=== PATIENT | female | born 1970 | race Caucasian/White ===

== ENCOUNTER 2018-02-13 20:15 | Emergency (ER) | payer OTHER ==
[~2018-02-13] VITALS: Ht 165.1 cm; Wt 104.5 kg
[~2018-02-13 20:15] MED LIST: ARIP15TA2 PO; BENZ1TAB10 PO; DESM0.2T23 PO; DIPH50CA4 PO; MOTRIN; OLAN5TAB2 PO; OXYC-112 PO; RISP3TAB13 PO; SERT100T12 PO
[2018-02-13 22:55] VITALS: BP 141/83
[2018-02-14 02:50] LABS: GLUCOSE,POINT OF CARE 252 MG/DL (70-110)
== END 2018-02-13 23:03 | disposition home or self-care (01) ==
LOC: EMS 20:16
DX: S93.401A Sprain of unspecified ligament of right ankle, initial encounter (principal); F32.9 Major depressive disorder, single episode, unspecified; K21.9 Gastro-esophageal reflux disease without esophagitis; E78.00 Pure hypercholesterolemia, unspecified; F17.210 Nicotine dependence, cigarettes, uncomplicated; Z79.899 Other long term (current) drug therapy; X50.1XXA Overexertion from prolonged static or awkward postures, initial encounter; Y93.89 Activity, other specified; Y92.89 Other specified places as the place of occurrence of the external cause; Y99.8 Other external cause status
CPT/HCPCS: 29540; 99284

== ENCOUNTER 2018-02-25 18:54 | Emergency (ER) | payer OTHER ==
[~2018-02-25] VITALS: Ht 165.1 cm; Wt 106.8 kg
[2018-02-25 19:15] LABS: GLUCOSE,POINT OF CARE 209 MG/DL (70-110)
[2018-02-25] MEDS ORDERED: METOCLOPRAMIDE HCL 10 MG TABLET PO ONE (19:30)
[2018-02-25] MEDS ORDERED: IBUPROFEN 400 MG TABLET PO ONE (21:45)
[2018-02-25 21:59] VITALS: BP 138/79
== END 2018-02-25 22:06 | disposition home or self-care (01) ==
LOC: EMS 18:56
DX: R51 Headache (principal); F32.9 Major depressive disorder, single episode, unspecified; K21.9 Gastro-esophageal reflux disease without esophagitis; E78.00 Pure hypercholesterolemia, unspecified; F17.210 Nicotine dependence, cigarettes, uncomplicated; R11.2 Nausea with vomiting, unspecified; Z79.899 Other long term (current) drug therapy
CPT/HCPCS: 70450; 99284

== ENCOUNTER 2018-07-23 17:01 | Emergency (ER) | payer OTHER ==
[~2018-07-23] VITALS: Ht 175.3 cm; Wt 100.0 kg
[2018-07-23] MEDS ORDERED: METF-960 PO (17:10)
[2018-07-23] MEDS ORDERED: ATOR20TA86 PO (17:10)
[2018-07-23 17:18] LABS: GLUCOSE,POINT OF CARE 142 MG/DL (70-110)
[2018-07-23 17:29] LABS: BASOPHILS % (AUTO) 0.8 % (0.0-2.0); EOSINOPHILS % (AUTO) 1.9 % (1.0-6.0); HEMATOCRIT 36.4 % (36-46); LYMPHOCYTES % (AUTO) 24.9 % (22.0-44.0); MEAN CORPUSCULAR HEMOGLOBIN 24.5 pg (26.0-34.0); MEAN CORPUSCULAR VOLUME 74 fL (80-100); MONOCYTES # (AUTO) 0.6 K/uL (0.1-1.0); MONOCYTES % (AUTO) 7.5 % (2.0-9.0); NEUTROPHILS # (AUTO) 5.2 K/uL (1.8-7.7); NEUTROPHILS % (AUTO) 64.9 % (40.0-70.0); PLATELET COUNT (AUTO) 263 K/uL (150-450); RED CELL DISTRIBUTION WIDTH 15.6 % (11.5-14.5)
[2018-07-23 17:51] LABS: ANION GAP 9 mmol/L (8-16); CALCIUM, TOTAL 9.9 mg/dL (8.8-10.5); CARBON DIOXIDE 28 mmol/L (22-29); CHLORIDE 102 mmol/L (98-107); CREATININE 0.77 mg/dL (0.60-1.30); GLOMERULAR FILTR. RATE CALC > 60 mL/min (>60); GLUCOSE,RANDOM 138 mg/dL (70-110); POTASSIUM 3.8 mmol/L (3.5-5.1); SODIUM SERUM 139 mmol/L (136-145); UREA NITROGEN, BLOOD 12 mg/dL (7-18)
[2018-07-23 17:58] LABS: ALANINE AMINOTRANSFERASE 85 U/L (12-78); ALBUMIN 3.7 g/dL (3.4-5.0); ALKALINE PHOSPHATASE 89 U/L (46-116); ASPARTATE AMINOTRANSFERASE 73 U/L (15-37); BILIRUBIN,TOTAL 0.3 mg/dL (0.1-1.0); TOTAL PROTEIN, SERUM 8.4 g/dL (6.4-8.2)
[2018-07-23 19:18] LABS: APPEARANCE,URINE CLOUDY (CLEAR); BILIRUBIN,URINE NEGATIVE (NEGATIVE); GLUCOSE, URINE (UA) NEGATIVE (NEGATIVE); KETONES,URINE NEGATIVE (NEGATIVE); LEUKOCYTE ESTERASE ,URINE MODERATE (NEGATIVE); NITRATE,URINE POSITIVE (NEGATIVE); OCCULT BLOOD,URINE NEGATIVE (NEGATIVE); PH,URINE 5.5 (5.0-8.0); PROTEIN,URINE NEGATIVE (NEGATIVE); UROBILINOGEN,URINE 0.2 mg/dL (<=1.0)
[2018-07-23 20:03] LABS: BACTERIA,URINE Moderate /HPF (None Seen); RBC,URINE None Seen /HPF (0-2)
[2018-07-23 20:04] LABS: MUCUS,URINE Few LPF (None Seen); SQUAMOUS EPITHELIAL CELL,UR Moderate /LPF (None Seen)
[2018-07-23 22:17] VITALS: BP 128/78
== END 2018-07-23 22:34 | disposition home or self-care (01) ==
LOC: EMS 17:02
DX: N39.0 Urinary tract infection, site not specified (principal); R07.2 Precordial pain; E78.00 Pure hypercholesterolemia, unspecified; K21.9 Gastro-esophageal reflux disease without esophagitis; F32.9 Major depressive disorder, single episode, unspecified; F17.210 Nicotine dependence, cigarettes, uncomplicated; Z79.84 Long term (current) use of oral hypoglycemic drugs; Z79.899 Other long term (current) drug therapy
CPT/HCPCS: 87086; 93005

== ENCOUNTER 2020-01-23 14:15 | Emergency (ER) | payer OTHER ==
[~2020-01-23] VITALS: Ht 165.1 cm; Wt 89.1 kg
[~2020-01-23 14:15] MED LIST changes: +ATOR20TA86 PO; +METF-960 PO
[2020-01-23] MEDS ORDERED: ACETAMINOPHEN 500 MG TABLET PO ONE (15:30)
[2020-01-23 17:22] VITALS: BP 118/71
== END 2020-01-23 18:48 | disposition home or self-care (01) ==
LOC: EMS 14:16
DX: S90.31XA Contusion of right foot, initial encounter (principal); E11.9 Type 2 diabetes mellitus without complications; W19.XXXA Unspecified fall, initial encounter; Y93.89 Activity, other specified; Y92.89 Other specified places as the place of occurrence of the external cause; Y99.8 Other external cause status

== ENCOUNTER 2020-08-20 11:31 | Emergency (ER) | payer OTHER ==
[~2020-08-20] VITALS: Ht 167.6 cm; Wt 79.5 kg
[~2020-08-20 11:31] MED LIST changes: -RISP3TAB13 PO; +RISP3TAB63 PO; +SERT-440 PO; -SERT100T12 PO
[2020-08-20] MEDS ORDERED: DAPA5TAB PO (11:41)
[2020-08-20] MEDS ORDERED: NITROGLYCERIN 2% (1 GM=INCH) PACKET TP ONE (11:45)
[2020-08-20] MEDS ORDERED: ASPIRIN 81 MG CHEWABLE TABLET PO ONE (11:45)
[2020-08-20 12:19] LABS: BASOPHILS % (AUTO) 0.5 % (0.0-2.0); EOSINOPHILS % (AUTO) 1.5 % (1.0-6.0); HEMATOCRIT 36.9 % (36-46); HEMOGLOBIN 12.2 g/dL (12.0-16.0); LYMPHOCYTES # (AUTO) 1.4 K/uL (1.0-4.8); LYMPHOCYTES % (AUTO) 20.8 % (22.0-44.0); MEAN CORPUSCULAR HEMOGLOBIN 25.5 pg (26.0-34.0); MEAN CORPUSCULAR HGB CONC 33.1 G/dL (31.0-37.0); MEAN CORPUSCULAR VOLUME 77 fL (80-100); MONOCYTES # (AUTO) 0.4 K/uL (0.1-1.0); MONOCYTES % (AUTO) 6.2 % (2.0-9.0); NEUTROPHILS # (AUTO) 4.9 K/uL (1.8-7.7); PLATELET COUNT (AUTO) 177 K/uL (150-450)
[2020-08-20 12:25] LABS: ANION GAP 9 mmol/L (8-16); CALCIUM, TOTAL 9.6 mg/dL (8.8-10.5); CARBON DIOXIDE 30 mmol/L (22-29); CHLORIDE 104 mmol/L (98-107); CREATININE 0.65 mg/dL (0.60-1.30); GLOMERULAR FILTR. RATE CALC > 60 mL/min (>60); GLUCOSE,RANDOM 132 mg/dL (70-110); POTASSIUM 3.8 mmol/L (3.5-5.1); SODIUM SERUM 143 mmol/L (136-145); UREA NITROGEN, BLOOD 14 mg/dL (7-18)
[2020-08-20 12:45] VITALS: BP 126/95
[2020-08-20] MEDS ORDERED: OMEG-102 PO (12:49)
== END 2020-08-20 12:50 | disposition home or self-care (01) ==
LOC: EMS 11:33
DX: R07.89 Other chest pain (principal); F32.9 Major depressive disorder, single episode, unspecified; E11.9 Type 2 diabetes mellitus without complications; K21.9 Gastro-esophageal reflux disease without esophagitis; E78.00 Pure hypercholesterolemia, unspecified; F17.210 Nicotine dependence, cigarettes, uncomplicated; Z88.5 Allergy status to narcotic agent; Z79.84 Long term (current) use of oral hypoglycemic drugs
CPT/HCPCS: 93005; 99285; 36415-L1; 36415-TC; 71045-TC

== ENCOUNTER 2021-07-18 20:54 | Emergency (ER) | payer OTHER ==
[~2021-07-18] VITALS: Ht 165.1 cm; Wt 100.0 kg
[~2021-07-18 20:54] MED LIST changes: -ARIP15TA2 PO; +ARIP15TA27 PO; +DAPA5TAB PO; -DESM0.2T23 PO; +DIPH50CA38 PO; -DIPH50CA4 PO; +METF-1211 PO; -METF-960 PO; -MOTRIN; -OLAN5TAB2 PO; +OLAN5TAB52 PO; +OMEG-102 PO
[2021-07-19] MEDS ORDERED: ACETAMINOPHEN 500 MG TABLET PO ONE
[2021-07-19 01:25] VITALS: BP 145/77
== END 2021-07-19 02:01 | disposition home or self-care (01) ==
LOC: EMS 21:22
DX: S00.03XA Contusion of scalp, initial encounter (principal); S09.90XA Unspecified injury of head, initial encounter; E04.1 Nontoxic single thyroid nodule; E11.9 Type 2 diabetes mellitus without complications; E78.00 Pure hypercholesterolemia, unspecified; K21.9 Gastro-esophageal reflux disease without esophagitis; F32.9 Major depressive disorder, single episode, unspecified; F17.210 Nicotine dependence, cigarettes, uncomplicated; Z88.8 Allergy status to other drugs, medicaments and biological substances; Z79.899 Other long term (current) drug therapy; W06.XXXA Fall from bed, initial encounter; Y93.89 Activity, other specified; Y92.89 Other specified places as the place of occurrence of the external cause; Y99.8 Other external cause status
CPT/HCPCS: 70450; 72125; 82962; 99284

== ENCOUNTER 2022-02-12 07:25 | Emergency (ER) | payer OTHER ==
[~2022-02-12] VITALS: Ht 165.1 cm; Wt 96.4 kg
[~2022-02-12 07:25] MED LIST changes: -BENZ1TAB10 PO; +BENZ1TAB96 PO
[2022-02-12] MEDS ORDERED: LOSA-381 PO (07:50)
[2022-02-12] MEDS ORDERED: FAMO20 PO (07:50)
[2022-02-12] MEDS ORDERED: ATOR20TA86 PO (07:50)
[2022-02-12] MEDS ORDERED: MELA3TAB89 PO ×2 (07:50→12:52)
[2022-02-12] MEDS ORDERED: SODIUM CHLORIDE 0.9% 1,000 ML IV ONE (08:15)
[2022-02-12 08:26] LABS: GLUCOMETER DEV NAME(LOC) ERT.5; GLUCOSE,POINT OF CARE 137 MG/DL (70-110)
[2022-02-12 08:29] LABS: BASOPHILS % (AUTO) 0.5 % (0.0-2.0); HEMATOCRIT 35.9 % (36-46); HEMOGLOBIN 11.7 g/dL (12.0-16.0); LYMPHOCYTES # (AUTO) 1.6 K/uL (1.0-4.8); LYMPHOCYTES % (AUTO) 23.4 % (22.0-44.0); MEAN CORPUSCULAR HEMOGLOBIN 25.7 pg (26.0-34.0); MEAN CORPUSCULAR HGB CONC 32.8 G/dL (31.0-37.0); MEAN CORPUSCULAR VOLUME 79 fL (80-100); MONOCYTES # (AUTO) 0.5 K/uL (0.1-1.0); MONOCYTES % (AUTO) 7.8 % (2.0-9.0); NEUTROPHILS # (AUTO) 4.6 K/uL (1.8-7.7); NEUTROPHILS % (AUTO) 66.3 % (40.0-70.0); PLATELET COUNT (AUTO) 160 K/uL (150-450); RED BLOOD CELL COUNT(AUTO) 4.57 MIL/uL (4.00-5.20); RED CELL DISTRIBUTION WIDTH 15.1 % (11.5-14.5)
[2022-02-12 08:38] LABS: ANION GAP 2 mmol/L (8-16); CALCIUM, TOTAL 8.7 mg/dL (8.8-10.5); CARBON DIOXIDE 31 mmol/L (22-29); CHLORIDE 105 mmol/L (98-107); CREATININE 0.65 mg/dL (0.60-1.30); GLUCOSE,RANDOM 141 mg/dL (70-110); POTASSIUM 3.6 mmol/L (3.5-5.1); SODIUM SERUM 138 mmol/L (136-145); UREA NITROGEN, BLOOD 11 mg/dL (7-18)
[2022-02-12 08:39] LABS: GLOMERULAR FILTR. RATE CALC > 60 mL/min (>60)
[2022-02-12 08:45] LABS: ALANINE AMINOTRANSFERASE 21 U/L (12-78); ALBUMIN 3.1 g/dL (3.4-5.0); ALKALINE PHOSPHATASE 79 U/L (46-116); ASPARTATE AMINOTRANSFERASE 16 U/L (15-37); BILIRUBIN,TOTAL 0.3 mg/dL (0.1-1.0); TOTAL PROTEIN, SERUM 6.7 g/dL (6.4-8.2)
[2022-02-12 11:58] VITALS: BP 122/80
[2022-02-12] MEDS ORDERED: METO25 PO (12:51)
[2022-02-12] MEDS ORDERED: OLAN10 PO (12:51)
[2022-02-12] MEDS ORDERED: METF-81 PO (12:51)
[2022-02-12] MEDS ORDERED: OXYB5TAB20 PO (12:51)
[2022-02-12] MEDS ORDERED: MECLIZINE HCL 25 MG TABLET PO ONE (13:00)
== END 2022-02-12 13:31 | disposition home or self-care (01) ==
LOC: EMS 07:25
DX: R42 Dizziness and giddiness (principal); F32.A Depression, unspecified; E11.9 Type 2 diabetes mellitus without complications; E78.00 Pure hypercholesterolemia, unspecified; F17.210 Nicotine dependence, cigarettes, uncomplicated; Z98.890 Other specified postprocedural states; Z88.8 Allergy status to other drugs, medicaments and biological substances; F79 Unspecified intellectual disabilities
CPT/HCPCS: 99284; 96360; 70450; 80053; 82962; 85025; 36415; J7030

== ENCOUNTER 2022-12-16 19:34 | Emergency (ER) | payer OTHER ==
[~2022-12-16] VITALS: Ht 165.1 cm; Wt 85.0 kg
[~2022-12-16 19:34] MED LIST changes: +ATOR20TA PO; -ATOR20TA86 PO; +BENZ1TAB84 PO; -BENZ1TAB96 PO; -DIPH50CA38 PO; +FAMO20 PO; +LOSA-381 PO; +MELA3TAB89 PO; -METF-1211 PO; +METF-81 PO; +METO25 PO; +OLAN10 PO; +OXYB5TAB20 PO; -OXYC-112 PO
[2022-12-16] MEDS ORDERED: LIDOCAINE 1% 10 ML VIAL SQ ONE (20:15)
[2022-12-16] MEDS ORDERED: PERTUSS(ACELL),DIPH,TET VAC/PF 0.5 ML SYRINGE IM. ONE (20:15)
[2022-12-16] MEDS ORDERED: BACITRACIN 0.9 GM PACKET OINTMENT TP ONE (20:15)
[2022-12-16] MEDS ORDERED: ACETAMINOPHEN 500 MG TABLET PO ONE (20:15)
[2022-12-16 20:33] VITALS: BP 110/60; PULSE 92; RESP 17; TEMP 98
== END 2022-12-16 21:18 | disposition home or self-care (01) ==
LOC: EMS 19:34
DX: S51.812A Laceration without foreign body of left forearm, initial encounter (principal); S00.03XA Contusion of scalp, initial encounter; E11.9 Type 2 diabetes mellitus without complications; E78.00 Pure hypercholesterolemia, unspecified; F32.A Depression, unspecified; K21.9 Gastro-esophageal reflux disease without esophagitis; F17.210 Nicotine dependence, cigarettes, uncomplicated; F79 Unspecified intellectual disabilities; Z88.8 Allergy status to other drugs, medicaments and biological substances; W01.0XXA Fall on same level from slipping, tripping and stumbling without subsequent striking against object, initial encounter; Y93.89 Activity, other specified; Y92.89 Other specified places as the place of occurrence of the external cause; Y99.8 Other external cause status
CPT/HCPCS: 99283; 73090; 90715; 90471; 12001; J3490

== ENCOUNTER 2023-06-08 11:03 | Emergency (ER) | payer OTHER ==
[~2023-06-08] VITALS: Ht 167.6 cm; Wt 95.5 kg
[2023-06-08 11:14] VITALS: TEMP 97.7
[2023-06-08] MEDS ORDERED: IBUP-1492 PO (12:53)
[2023-06-08 13:03] VITALS: BP 116/71; PULSE 84; RESP 16
== END 2023-06-08 13:04 | disposition home or self-care (01) ==
LOC: EMS 11:19
DX: S52.591A Other fractures of lower end of right radius, initial encounter for closed fracture (principal); F32.A Depression, unspecified; E11.9 Type 2 diabetes mellitus without complications; E78.00 Pure hypercholesterolemia, unspecified; F17.210 Nicotine dependence, cigarettes, uncomplicated; Z98.890 Other specified postprocedural states; Z88.8 Allergy status to other drugs, medicaments and biological substances; W19.XXXA Unspecified fall, initial encounter; Y93.89 Activity, other specified; Y92.89 Other specified places as the place of occurrence of the external cause; Y99.8 Other external cause status
CPT/HCPCS: 71045; 82962; 99284

== ENCOUNTER 2024-06-28 10:41 | Emergency (ER) | payer OTHER ==
[~2024-06-28] VITALS: Ht 157.5 cm; Wt 81.8 kg
[~2024-06-28 10:41] MED LIST changes: +BENZ-247 PO; -BENZ1TAB84 PO; +IBUP-1492 PO; -RISP3TAB63 PO; +RISP3TAB77 PO
[2024-06-28 10:47] VITALS: TEMP 98.7
[2024-06-28 11:35] VITALS: BP 130/77; PULSE 96; RESP 18; O2SAT 95
[2024-06-28] MEDS: TraMADol HCL 50 MG TABLET PO ONE (12:12)
== END 2024-06-28 13:00 | disposition home or self-care (01) ==
LOC: EMS 12:44
DX: S60.222A Contusion of left hand, initial encounter (principal); S80.01XA Contusion of right knee, initial encounter; E11.9 Type 2 diabetes mellitus without complications; E78.00 Pure hypercholesterolemia, unspecified; F32.A Depression, unspecified; K21.9 Gastro-esophageal reflux disease without esophagitis; F17.210 Nicotine dependence, cigarettes, uncomplicated; Z88.8 Allergy status to other drugs, medicaments and biological substances; Z79.84 Long term (current) use of oral hypoglycemic drugs; Z79.899 Other long term (current) drug therapy; W01.0XXA Fall on same level from slipping, tripping and stumbling without subsequent striking against object, initial encounter; Y93.89 Activity, other specified; Y92.89 Other specified places as the place of occurrence of the external cause; Y99.8 Other external cause status
CPT/HCPCS: 99284; 73130-TC; 73562-TC; Z7502; Z7610

== ENCOUNTER 2025-03-19 09:47 | Emergency (ER) | payer OTHER ==
[~2025-03-19] VITALS: Ht 165.1 cm; Wt 102.3 kg
[~2025-03-19 09:47] MED LIST changes: -IBUP-1492 PO
[2025-03-19 09:52] VITALS: TEMP 98.2
[2025-03-19 10:49] VITALS: BP 135/76; PULSE 76; RESP 18; O2SAT 95
[2025-03-19] MEDS: IBUPROFEN 600 MG TABLET PO ONE (10:51)
== END 2025-03-19 10:56 | disposition home or self-care (01) ==
LOC: EMS 09:54
DX: M25.531 Pain in right wrist (principal); E11.9 Type 2 diabetes mellitus without complications; E78.00 Pure hypercholesterolemia, unspecified; F32.A Depression, unspecified; K21.9 Gastro-esophageal reflux disease without esophagitis; F17.210 Nicotine dependence, cigarettes, uncomplicated; Z79.899 Other long term (current) drug therapy
CPT/HCPCS: 99283